=== PATIENT | male | born 1965 | race African-American/Black ===

== ENCOUNTER 2024-04-05 13:22 | Inpatient (IN) | payer MEDICAID, OTHER ==
[~2024-04-05] VITALS: Ht 175.3 cm; Wt 63.0 kg
[2024-04-05 13:27] VITALS: O2SAT 100
[2024-04-05] MEDS: SODIUM CHLORIDE 0.9% 1,000 ML IV ONE (15:01)
[2024-04-05] MEDS: CEFTRIAXONE 1GM/50ML 50 ML IV ONE (15:02)
[2024-04-05 15:12] LABS: BASOPHILS % 0.5 % (0.0-2.0); EOSINOPHILS % 0.1 % (0.0-5.0); HEMATOCRIT. 35.2 % (42.0-52.0); HEMOGLOBIN. 11.4 g/dL (14.0-18.0); LYMPHOCYTES % 7.3 % (20.0-50.0); MEAN CORPUSCULAR HEMOGLOBIN 28.6 pg (28.0-32.0); MEAN CORPUSCULAR HGB CONC 32.5 g/dL (31.0-37.0); MEAN CORPUSCULAR VOLUME 88.1 fL (80.0-94.0); MEAN PLATELET VOLUME 8.1 fl (7.4-10.4); MONOCYTES % 10.1 % (2.0-8.0); PLATELET 581 x1000/uL (130-400); RED CELL DISTRIBUTION WIDTH 13.2 % (11.6-14.6); WHITE BLOOD COUNT 8.2 x1000/uL (4.5-11.0)
[2024-04-05 15:13] LABS: CHLORIDE 103 mEq/L (98-107); POTASSIUM 3.9 mEq/L (3.5-5.1); SODIUM 138 mEq/L (136-145)
[2024-04-05 15:14] LABS: CALCIUM 9.6 mg/dL (8.7-10.4); CARBON DIOXIDE 21 mEq/L (21-32)
[2024-04-05 15:19] LABS: CREATININE 1.5 mg/dL (0.6-1.3); GLUCOSE 102 mg/dL (70-105); UREA NITROGEN BLOOD 17 mg/dL (9-23)
[2024-04-05 15:20] LABS: TROPONIN I HIGH SENSITIVITY 7 ng/L (3.0-53)
[2024-04-05 15:21] LABS: ALANINE AMINOTRANSFERASE < 7 IU/L (10-49); ASPARTATE AMINOTRANSFERASE 11 IU/L (<34); CREATINE KINASE 27 IU/L (46-171)
[2024-04-05 15:22] LABS: BILIRUBIN DIRECT 0.2 mg/dL (<=3.0); BILIRUBIN TOTAL 0.4 mg/dL (0.1-1.0); PROTEIN TOTAL 7.2 g/dL (6.0-8.3)
[2024-04-05] MEDS: MORPHINE SULFATE 4 MG/ML INJ (FOR IV/IM USE) IV ONE (17:19)
[2024-04-05] MEDS: LIDOCAINE HCL/EPINEPHRINE 1%-EPI 1:100,000 20ML VIAL INFIL ONE (17:19)
[2024-04-05] MEDS: VANCOMYCIN 1G PREMIX 200 ML IV SCH (17:19)
[2024-04-05] MEDS: KETOROLAC 15MG/ML VIAL IV ONE (17:19)
[2024-04-05] MEDS: ACETAMINOPHEN 325MG TABLET PO ONE (18:33)
[2024-04-05 20:53] LABS: CLARITY URINE CLEAR (CLEAR); COLOR URINE YELLOW (YELLOW); GLUCOSE URINE NEGATIVE (NEGATIVE); KETONES URINE 2+ (NEGATIVE); LEUKOCYTE ESTERASE URINE NEGATIVE (NEGATIVE); NITRITE URINE NEGATIVE (NEGATIVE); OCCULT BLOOD URINE NEGATIVE (NEGATIVE); PH URINE 5.5 (4.5-8.0); PROTEIN URINE TRACE (NEGATIVE); SPECIFIC GRAVITY URINE 1.016 (1.005-1.030)
[2024-04-05] MEDS ORDERED: GUAIFENESIN 200MG/10ML SUGAR FREE UDC PO PRN (21:00)
[2024-04-05] MEDS ORDERED: ONDANSETRON HCL 4MG/2ML INJ IV PRN (21:00)
[2024-04-05] MEDS ORDERED: ACETAMINOPHEN 325MG TABLET PO PRN ×2 (21:00)
[2024-04-05] MEDS ORDERED: DOCUSATE SODIUM 100MG CAPSULE PO PRN (21:00)
[2024-04-05] MEDS ORDERED: CLONIDINE 0.1MG TABLET PO PRN (21:00)
[2024-04-05] MEDS ORDERED: IPRATROPIUM/ALBUTEROL 0.5-3(2.5)MG/3ML NEB HHN PRN (21:00)
[2024-04-05] MEDS ORDERED: MAGNESIUM/ALUMINUM HYDROXIDE/SIMETHICONE 30ML UDC PO PRN (21:00)
[2024-04-05 21:17] LABS: BACTERIA URINE TRACE
[2024-04-05 21:18] LABS: RBC URINE NONE SEEN /hpf (0-2); SQUAMOUS EPITHELIAL CELL URINE RARE /lpf (RARE/1+); WBC URINE 0-2 /hpf (0-2)
[2024-04-05] MEDS: PIPERACILLIN/TAZO 3.375G/50ML 50 ML IV SCH (21:58)
[2024-04-05] MEDS: SODIUM CHLORIDE 0.9% 1,000 ML IV SCH (21:58)
[2024-04-05] MEDS ORDERED: PIPERACILLIN/TAZO 3.375G/50ML 50 ML IV SCH (22:00)
[2024-04-06] MEDS ORDERED: VANCOMYCIN 500MG/100ML IV SCH (05:00)
[2024-04-06 12:00] VITALS: BP 139/85; PULSE 85; RESP 12; TEMP 37.1
[2024-04-06] MEDS: AMLODIPINE 10MG TABLET PO SCH (12:37)
[2024-04-06] MEDS: FAMOTIDINE 20MG/2ML VIAL IV SCH (12:37)
[2024-04-06] MEDS: KETOROLAC 15MG/ML VIAL IV PRN (12:37)
[2024-04-06] MEDS: ENOXAPARIN 40MG/0.4ML SYR SUBCUT SCH (12:39)
[2024-04-06] MEDS: PIPERACILLIN/TAZO 3.375G/50ML 50 ML IV SCH (16:00)
[2024-04-06 18:02] LABS: BASOPHILS % 0.5 % (0.0-2.0); EOSINOPHILS % 0.2 % (0.0-5.0); HEMATOCRIT. 34.7 % (42.0-52.0); HEMOGLOBIN. 11.3 g/dL (14.0-18.0); LYMPHOCYTES % 7.1 % (20.0-50.0); MEAN CORPUSCULAR HEMOGLOBIN 28.9 pg (28.0-32.0); MEAN CORPUSCULAR HGB CONC 32.6 g/dL (31.0-37.0); MEAN CORPUSCULAR VOLUME 88.6 fL (80.0-94.0); MEAN PLATELET VOLUME 8.2 fl (7.4-10.4); MONOCYTES % 10.4 % (2.0-8.0); NEUTROPHILS % 81.8 % (40.0-76.0); PLATELET 526 x1000/uL (130-400); RED BLOOD CELL COUNT 3.92 mill/uL (4.7-6.1); RED CELL DISTRIBUTION WIDTH 13.4 % (11.6-14.6); WHITE BLOOD COUNT 7.8 x1000/uL (4.5-11.0)
[2024-04-06 18:08] LABS: CARBON DIOXIDE 23 mEq/L (21-32); CHLORIDE 106 mEq/L (98-107); POTASSIUM 3.9 mEq/L (3.5-5.1); SODIUM 140 mEq/L (136-145)
[2024-04-06 18:09] LABS: CALCIUM 9.5 mg/dL (8.7-10.4)
[2024-04-06 18:14] LABS: CREATININE 1.4 mg/dL (0.6-1.3); GLUCOSE 93 mg/dL (70-105); LDL CHOLESTEROL 101 mg/dL (5-100); TRIGLYCERIDE 75 mg/dL (0-150); UREA NITROGEN BLOOD 16 mg/dL (9-23)
[2024-04-06 18:16] LABS: CHOLESTEROL 146 mg/dL (<200); HDL CHOLESTEROL 31 mg/dL (>55)
[2024-04-06 18:18] LABS: T4 FREE 1.51 ng/dL (0.89-1.76); THYROID STIMULATING HORMONE 0.84 uIU/mL (0.55-4.78)
[2024-04-06 20:00] VITALS: BP 135/91; PULSE 97; RESP 18; TEMP 37.1; O2SAT 99
[2024-04-06] MEDS: VANCOMYCIN 1.25GM PMX (XELLIA) 250 ML IV SCH (20:04)
[2024-04-06] MEDS ORDERED: LISI-186 PO (23:23)
[2024-04-07] VITALS (7 sets, daily range): BP systolic 122–141; BP diastolic 79–94; PULSE 78–104; RESP 17–20; TEMP 36.1–36.8; O2SAT 96–100
[2024-04-07 09:23] LABS: CALCIUM 9.6 mg/dL (8.7-10.4)
[2024-04-07 09:27] LABS: URIC ACID 6.4 mg/dL (3.7-9.2)
[2024-04-07 09:28] LABS: CREATININE 1.5 mg/dL (0.6-1.3)
[2024-04-07] MEDS: LACTATED RINGERS 1,000 ML IV ONE (09:41)
[2024-04-07 11:07] LABS: BASOPHILS % 0.6 % (0.0-2.0); HEMATOCRIT. 30.7 % (42.0-52.0); HEMOGLOBIN. 10.3 g/dL (14.0-18.0); LYMPHOCYTES % 15.9 % (20.0-50.0); MEAN CORPUSCULAR HEMOGLOBIN 29.4 pg (28.0-32.0); MEAN CORPUSCULAR HGB CONC 33.7 g/dL (31.0-37.0); MEAN CORPUSCULAR VOLUME 87.4 fL (80.0-94.0); MEAN PLATELET VOLUME 8.1 fl (7.4-10.4); MONOCYTES % 14.2 % (2.0-8.0); NEUTROPHILS % 68.3 % (40.0-76.0); PLATELET 476 x1000/uL (130-400); RED BLOOD CELL COUNT 3.51 mill/uL (4.7-6.1); RED CELL DISTRIBUTION WIDTH 13.2 % (11.6-14.6); WHITE BLOOD COUNT 7.3 x1000/uL (4.5-11.0)
[2024-04-07] MEDS ORDERED: BENA10TA74 PO (17:16)
[2024-04-07] MEDS ORDERED: ALLO100T (17:16)
[2024-04-07] MEDS ORDERED: AMLO10TA80 PO ×2 (17:17→17:21)
[2024-04-07] MEDS ORDERED: PROT40 MT (17:21)
[2024-04-07] MEDS ORDERED: LOSA25TA26 MT (17:21)
[2024-04-07] MEDS ORDERED: NAPR-681 MT (17:21)
[2024-04-07] MEDS ORDERED: ALLO100T MT (17:21)
[2024-04-07] MEDS: HYDROCODONE/ACETAMINOPHEN 10/325MG TABLET PO NR (17:28)
== END 2024-04-07 18:28 | disposition home or self-care (01) | DRG 342 ==
LOC: ER 13:41 → MICUSO 18:22 → EDBEDREQ 18:31 → EDBEDREQTM 18:31 → 8WST 04-06 12:05
PROVIDERS: ADMIT Hospitalist; ATTEND Hospitalist
PROC: 0SJG3ZZ Inspection of Left Ankle Joint, Percutaneous Approach (ICD-10-PCS; principal; 2024-04-05)
DX: S82.55XA Nondisplaced fracture of medial malleolus of left tibia, initial encounter for closed fracture (principal); N17.9 Acute kidney failure, unspecified; E78.5 Hyperlipidemia, unspecified; M70.22 Olecranon bursitis, left elbow; I16.0 Hypertensive urgency; K59.00 Constipation, unspecified; M85.80 Other specified disorders of bone density and structure, unspecified site; N18.1 Chronic kidney disease, stage 1; I12.9 Hypertensive chronic kidney disease with stage 1 through stage 4 chronic kidney disease, or unspecified chronic kidney disease; Z20.822 Contact with and (suspected) exposure to COVID-19; M10.9 Gout, unspecified; Z79.899 Other long term (current) drug therapy; Z88.8 Allergy status to other drugs, medicaments and biological substances
CPT/HCPCS: 20605; 36415; 71045; 73030; 73080; 73600; 80048; 80061; 80076; 81003; 82550; 83605; 84145; 84439; 84443; 84484; 84550; 85025; 87426; 87804; 99291; A4565; A4606; J0696; J1650; J1885; J2004; J2270; J2543; J3370; J3490